=== PATIENT | male | born 1985 | race Caucasian/White ===

== ENCOUNTER → 2018-06-27 | Outpatient (CLI) | payer OTHER ==
[2018-06-27 17:38] LABS: Basophils % (A) 1 %; Eosinophils # (A) 0.3 k/uL (0-0.7); Eosinophils % (A) 5 %; HCT 45.4 % (39.0-53.0); HGB 15.7 gm/dL (13.0-17.5); Lymphocytes # (A) 1.1 k/uL (1.0-4.8); Lymphocytes % (A) 17 %; MCH 30.4 pg (25.0-35.0); MCHC 34.7 g/dL (31.0-37.0); MCV 87.6 fL (80.0-100.0); Mean Platelet Volume 7.5; Monocytes # (A) 0.5 k/uL (0-1.0); Monocytes % (A) 8 %; Neutrophils # (A) 4.4 k/uL (1.3-7.7); Neutrophils % (A) 68 %; Platelet Count 173 k/uL (150-450); RBC 5.19 m/uL (4.30-5.90); RDW 12.3 % (11.5-15.5); WBC 6.4 k/uL (3.8-10.6)
[2018-06-27 19:29] LABS: Erythrocyte Sedimentation Rate 2 mm/hr (0-15)
[2018-06-28 00:15] LABS: Folate, Serum 14.1 ng/mL
[2018-06-28 00:37] LABS: T4, Free (Free Thyroxine) 1.1 ng/dL (0.80-1.80)
[2018-06-28 00:42] LABS: Anion Gap 9.1 mmol/L (4.00-12.00); C Reactive Protein 1.2 mg/dL (0.0-0.8); Calcium 9.4 mg/dL (8.7-10.3); Carbon Dioxide 24.9 mmol/L (21.6-31.8); Magnesium 1.7 mg/dL (1.5-2.4); Phosphorus 2.4 mg/dL (2.4-5.1); Potassium 3.8 mmol/L (3.5-5.5)
[2018-06-28 01:21] LABS: Hemoglobin A1C 5.1 % (4.0-6.0)
== END | disposition home or self-care (01) ==
LOC: LABWHC1 16:49
PROVIDERS: ATTEND Psychiatry & Neurology Neurology
DX: G43.909 Migraine, unspecified, not intractable, without status migrainosus (principal)
CPT/HCPCS: 36415; 80051; 82310; 82565; 82607; 82746; 82947; 83036; 83735; 84100; 84403; 84439; 84443; 84450; 84460; 84520; 85025; 85652; 86038; 86140; 86780

== ENCOUNTER 2019-04-03 06:39 | Day surgery (SDC) | payer OTHER ==
[2019-04-01 15:05] VITALS: BMI 32.5
--- NOTE | 2019-04-02 12:53 | P.GSHP ---
History of Present Illness H&P Date: 04/02/19 33 yo male with a large right hydrocele He had it drained a year ago only to have it returned as expected. He wants it surgically removed The alternatives, risks and complications have been discussed. He comes for this surgical procedure. - Constitutional Constitutional: Denies chills, Denies fever - EENT Eyes: denies blurred vision, denies pain Ears, nose, mouth and throat: Denies headache, Denies sore throat - Cardiovascular Cardiovascular: Denies chest pain, Denies shortness of breath - Respiratory Respiratory: Denies cough, Denies 7 - Gastrointestinal Gastrointestinal: Denies abdominal pain, Denies diarrhea, Denies nausea, Denies vomiting - Genitourinary (Female) Genitourinary: Denies dysuria, Denies hematuria - Genitourinary (Male) Genitourinary: Denies dysuria, Denies hematuria - Musculoskeletal Musculoskeletal: Denies myalgias - Integumentary Integumentary: Denies pruritus, Denies rash - Neurological Neurological: Denies numbness, Denies weakness - Psychiatric Psychiatric: Denies anxiety, Denies depression - Endocrine Endocrine: Denies fatigue, Denies weight change Past Medical History Additional Past Medical History / Comment(s): right hydrocele, hx of head injury, hx of meniere's, hx of migraines History of Any Multi-Drug Resistant Organisms: None Reported Past Surgical History: Adenoidectomy, Tonsillectomy Additional Past Surgical History / Comment(s): left hydrocele, mastoidectomy and sx for meniere's Past Anesthesia/Blood Transfusion Reactions: Postoperative Nausea & Vomiting (PONV) Additional Past Anesthesia/Blood Transfusion Reaction / Comment(s): states "hard to wake up" Smoking Status: Former smoker - Past Family History Father Family Medical History: Cancer Additional Family Medical History / Comment(s): from melanoma Medications and Allergies Home Medications Medication Instructions Recorded Confirmed Type Dramamine 1 tab PO DIRECTED PRN 04/01/19 History Propranolol [Inderal] 20 mg PO Q72H 04/01/19 04/01/19 History Allergies Allergy/AdvReac Type Severity Reaction Status Date / Time No Known Allergies Allergy Verified 04/01/19 14:56 Surgical - Exam - General well developed, well nourished, no distress - Eyes PERRL - ENT no hearing loss - Neck no masses - Respiratory normal expansion, normal respiratory effort - Cardiovascular Rhythm: regular - Abdomen Abdomen: soft, non tender - Genitourinary large right hydrocele normal penis with no external lesions - Integumentary no rash, no growths - Neurologic normal coordination, normal sensation - Musculoskeletal normal gait, normal posture - Psychiatric oriented to time, oriented to person, oriented to place, speech is normal, memory intact Assessment and Plan Assessment: Impression: Right hydrocele Plan: RIght hydrocelelctomy
[~2019-04-03 06:39] MED LIST: DEXAMETHASONE SOD PHOSPHATE 10 MG/ML 1 ML VIAL IV ONE; HYDROmorphone 0.5 MG/0.5 ML SYRINGE IVP PRN; LACTATED RINGERS 1,000 ML IV SCH; LIDOCAINE 1% 20 ML VIAL (10MG/ML) FOR IV START INTRADERMA PRN; MIDAZOLAM 2 MG/2 ML VIAL IV PRN; ONDANSETRON 4 MG/2 ML VIAL IVP ONE; SCOPOLAMINE 1.5MG/72HR PATCH TRANSDERM ONE
[2019-04-03] MEDS ORDERED: KETOROLAC 30 MG/ML 1 ML VIAL ONE (07:31)
[2019-04-03] MEDS ORDERED: PROPOFOL 10 MG/ML 20 ML VIAL IV ONE (07:31)
[2019-04-03] MEDS ORDERED: LIDOCAINE 1% INJ 10MG/ML (20 ML MDV) ONE (07:31)
[2019-04-03] MEDS ORDERED: MIDAZOLAM 2 MG/2 ML VIAL ONE (07:31)
[2019-04-03] MEDS ORDERED: fentaNYL (PF) 50 MCG/ML 2 ML AMP ONE (07:31)
[2019-04-03] MEDS ORDERED: BUPIVACAINE (PF) 0.5% 30 ML VIAL SQ ONE ×2 (07:49)
[2019-04-03] MEDS ORDERED: LACTATED RINGERS 1,000 ML IV ONE (07:53)
--- NOTE | 2019-04-03 08:40 | P.OP ---
Date of Procedure: 04/03/19 Preoperative Diagnosis: Right hydrocele Postoperative Diagnosis: Right hydrocele Procedure(s) Performed: Right hydrocelectomy Anesthesia: DONNA Surgeon: Keagan Hayes Estimated Blood Loss (ml): 50 Pathology: other (Hydrocele sac) Condition: stable Disposition: PACU Indications for Procedure: The patient is 33. He has had a right hydrocele for a couple years. He had no insurance last year so I drained it in the office at his request. It has returned. He wants it surgically removed. Description of Procedure: The patient was brought to the operating suite. He's given a general endotracheal anesthesia. He is prepped and draped sterilely. A midline scrotal incision is made. I dissect through a somewhat thickened scrotal sac. The tunica vaginalis is inflamed and thickened. I opened the tunica vaginalis and drained out about 300 mL of clear straw-colored fluid. The tunica vaginalis is very inflamed. The hydrocele sac is thick and inflamed. It is multiloculated. I excised the hydrocele sac. I then bottlenecked the sac with running 3-0 chromic. Control any extra bleeding. The testicle and cord are inspected and are viable. The testicle is soft. No evidence of malignancy. Scrotum was then closed in 2 layers with 3-0 chromic. 10 mL of half percent Marcaine right cord block is administered. The patient awake and returned recovery in good condition. Blood loss is approximately 50 mL. A follow-up in the office in one week.
[2019-04-03 08:47] VITALS: TEMP 97.8
[2019-04-03 10:18] VITALS: BP 126/75; RESP 18
[2019-04-03 10:25] VITALS: PULSE 80
== END 2019-04-03 10:50 | disposition home or self-care (01) ==
LOC: OR 06:39
PROVIDERS: ATTEND Urology
DX: N43.3 Hydrocele, unspecified (principal); G43.909 Migraine, unspecified, not intractable, without status migrainosus; G47.33 Obstructive sleep apnea (adult) (pediatric); K21.9 Gastro-esophageal reflux disease without esophagitis; Z79.899 Other long term (current) drug therapy; Z90.89 Acquired absence of other organs; Z87.891 Personal history of nicotine dependence; Z80.8 Family history of malignant neoplasm of other organs or systems
CPT/HCPCS: 88302; 55040; J2250; J1100; J0690; J2405; J2001; J3010; J1885; J2704

== ENCOUNTER → 2020-07-16 | Outpatient (CLI) | payer OTHER ==
--- NOTE | 2020-07-16 15:27 | XR ---
EXAMINATION TYPE: XR hand complete RT DATE OF EXAM: 07/16/2020 COMPARISON: None HISTORY: Pain lateral side TECHNIQUE: 3 view right hand FINDINGS: No acute fracture or dislocation is evident. Joint spaces are preserved. Soft tissues are n ormal. Follow up exams can be performed 7-10 days from acute trauma for continued pain IMPRESSION: 1. Normal three-view right hand
== END ==
LOC: RADXRMAIN 14:26
PROVIDERS: ATTEND Nurse Practitioner Adult Health
DX: M79.641 Pain in right hand (principal)

== ENCOUNTER → 2023-07-19 | Outpatient (CLI) | payer OTHER ==
[2023-07-19 19:46] LABS: Basophils # (A) 0.06 X 10*3/uL (0.00-0.10); Eosinophils # (A) 0.15 X 10*3/uL (0.04-0.35); Eosinophils % (A) 2.5 %; HCT 45.6 % (39.6-50.0); HGB 16.3 g/dL (13.0-17.0); Lymphocytes # (A) 1.62 X 10*3/uL (0.90-5.00); Lymphocytes % (A) 27.2 %; MCH 31.9 pg (27.0-32.0); MCHC 35.7 g/dL (32.0-37.0); MCV 89.2 FL (80.0-97.0); Mean Platelet Volume 11.1 FL (9.5-12.2); Monocytes # (A) 0.55 X 10*3/uL (0.20-1.00); Monocytes % (A) 9.2 %; NRBC Per 100 WBC 0 X 10*3/uL (0.00-0.01); Neutrophils # (A) 3.56 X 10*3/uL (1.80-7.70); Neutrophils % (A) 59.9 %; Platelet Count 215 X 10*3/uL (140-440); RBC 5.11 X 10*6/uL (4.40-5.60); RDW 12.1 % (11.5-14.5); WBC 5.95 X 10*3/uL (4.50-10.00)
[2023-07-19 22:42] LABS: ALT 47 U/L (10-49); AST 31 U/L (14-35); Albumin 4.6 g/dL (3.8-4.9); Albumin/Globulin Ratio 1.92 Ratio (1.60-3.17); Alkaline Phosphatase 88 U/L (41-126); Blood Urea Nitrogen 17.1 mg/dL (9.0-27.0); Calcium 9.7 mg/dL (8.7-10.3); Carbon Dioxide 27.6 mmol/L (21.6-31.8); Chloride 100 mmol/L (96-109); Chol/HDL Ratio 5.49 Ratio; Globulin 2.4 g/dL (1.6-3.3); Glucose 95 mg/dL (70-110); LDL Cholesterol,Calculated 125.1 mg/dL (0.0-131.0); Potassium 3.9 mmol/L (3.5-5.5); Sodium 140 mmol/L (135-145); Total Bilirubin 0.4 mg/dL (0.3-1.2)
== END | disposition home or self-care (01) ==
LOC: LABWHC1 13:54
PROVIDERS: ATTEND Family Medicine
DX: Z00.00 Encounter for general adult medical examination without abnormal findings (principal); E29.1 Testicular hypofunction; R53.83 Other fatigue; Z79.899 Other long term (current) drug therapy
CPT/HCPCS: 36415; 80053; 80061; 82306; 84402; 84403; 84443; 85025

== ENCOUNTER → 2023-08-02 | Outpatient (CLI) | payer OTHER ==
[2023-08-02 19:22] LABS: Prostate Specific Antigen 0.34 ng/mL (0.000-2.500)
[2023-08-02 19:23] LABS: Follicle Stimulating Hormone 5.4 mIU/mL; Luteinizing Hormone 6.8 mIU/mL
== END | disposition home or self-care (01) ==
LOC: LABWHC1 13:59
PROVIDERS: ATTEND Nurse Practitioner Family
DX: E29.1 Testicular hypofunction (principal)
CPT/HCPCS: 36415; 83001; 83002; 84146; 84153; 84270; 84402; 84403

== ENCOUNTER → 2024-02-27 | Outpatient (CLI) | payer OTHER ==
[2024-02-28 03:08] LABS: HCT 45.4 % (39.6-50.0); HGB 15.9 g/dL (13.0-17.0); MCH 31.9 pg (27.0-32.0); Mean Platelet Volume 11.2 FL (9.5-12.2); NRBC Per 100 WBC 0 X 10*3/uL (0.00-0.01); Platelet Count 243 X 10*3/uL (140-440); RBC 4.99 X 10*6/uL (4.40-5.60); RDW 12.3 % (11.5-14.5)
[2024-02-28 03:37] LABS: Prostate Specific Antigen 0.3 ng/mL (0.000-2.500)
== END | disposition home or self-care (01) ==
LOC: LABWHC1 16:28
PROVIDERS: ATTEND Family Medicine
CPT/HCPCS: 36415; 84153; 84403; 85027